=== PATIENT | male | born 1945 | race Caucasian/White ===

== ENCOUNTER 2021-04-17 18:09 | Inpatient (IN) ==
[2021-04-17] MEDS ORDERED: NS 0.9% 1000 ml BAG 1,000 ML IV ONE ×2 (18:34→18:55)
[2021-04-17 18:46] LABS: ABS Lymphocytes 0.2 10^3/ul (1.0-4.8); ABS Monocytes 1.4 10^3/ul (0-0.8); ABS Neutrophils 15.7 10^3/ul (1.5-7.7); Hematocrit 27 % (42-52); Lymphocyte % 1.1 %; Mean Corpuscular HGB Conc 34 g/dL (31-36); Mean Corpuscular Hemoglobin 31 pg (27-31); Mean Corpuscular Volume 93 fL (80-94); Platelet Count 296 10^3/uL (150-450); Red Blood Count 2.91 10^6 /uL (4.18-5.48); Red Cell Distribution Width 17 % (10-15); White Blood Count 17.4 10^3/uL (3.5-10.8)
[2021-04-17] MEDS ORDERED: Piperacillin/Tazobac ADVAN 3.375 GM in NS 0.9% 100 ml BAG 100 ML IVPB ONE (18:58)
[2021-04-17 19:10] LABS: ALT 7 U/L (7-52); AST 18 U/L (13-39); Albumin 3.1 g/dL (3.2-5.2); Albumin/Globulin Ratio 1.2 (1-3); Alkaline Phosphatase 74 U/L (35-149); Anion Gap 9 mmol/L (2-11); Blood Urea Nitrogen 27 mg/dL (6-24); CO2 Carbon Dioxide 21 mmol/L (22-32); Calcium 8.7 mg/dL (8.6-10.3); Chloride 104 mmol/L (101-111); Creatine Kinase 164 U/L (10-223); EGFR African American 65.3 (>60); Globulin 2.6 g/dL (2-4); Glucose 111 mg/dL (70-100); Potassium 3.1 mmol/L (3.5-5.0); Sodium 134 mmol/L (135-145); Total Protein 5.7 g/dL (6.4-8.9)
[2021-04-17 19:38] LABS: Troponin I 0.06 ng/mL (<0.03)
[2021-04-17] MEDS ORDERED: Albuterol HFA INHALER 8 gm MDI INH PRN (21:59)
[2021-04-17] MEDS ORDERED: Potassium Chlor 20 meq TAB.ER PO ONE (22:11)
[2021-04-17] MEDS ORDERED: Cefepime 1 GM IV - ED ONCE IV ONE (22:30)
[2021-04-17 23:23] LABS: Urine Appearance Turbid; Urine Bilirubin Negative (Negative); Urine Blood 3+ (Negative); Urine Color Amber; Urine Glucose Negative (Negative); Urine Ketones Negative (Negative); Urine Nitrite Negative (Negative); Urine Protein 3+(>=500 mg/dL) (Negative); Urine Specific Gravity 1.009 (1.002-1.030); Urine Urobilinogen Negative (Negative)
[2021-04-17 23:29] LABS: Urine Bacteria 1+ (Absent); Urine Red Blood Cell 3+(>10/hpf) (Absent); Urine Squamous Epithelial Cell Present (Absent); Urine White Blood Cell 3+(>20/hpf) (Absent)
[2021-04-18] MEDS: NS 0.9% 1000 ml BAG 1,000 ML IV SCH ×2 (01:32→15:36)
[2021-04-18 03:04] LABS: % Iron Saturation 8 % (15-55); Iron < 20 ug/dL (50-212); Total Iron Binding Capacity 245 mcg/dL (250-450); Transferrin 175 mg/dL (203-362); Unsaturated Iron Binding < 230 ug/dL
[2021-04-18 03:04] LABS: Troponin I 0.07 ng/mL (<0.03)
[2021-04-18 04:52] LABS: Ferritin 144.5 ng/mL (24-336)
[2021-04-18 04:59] LABS: Vitamin B12 96 pg/mL (180-914)
[2021-04-18 06:02] LABS: ABS Lymphocytes 0.4 10^3/ul (1.0-4.8); ABS Monocytes 1.5 10^3/ul (0-0.8); ABS Neutrophils 11.9 10^3/ul (1.5-7.7); Eosinophil % 0.1 %; Hematocrit 24 % (42-52); Hemoglobin 8.1 g/dL (14.0-18.0); Lymphocyte % 3.1 %; Mean Corpuscular HGB Conc 34 g/dL (31-36); Mean Corpuscular Hemoglobin 32 pg (27-31); Mean Corpuscular Volume 94 fL (80-94); Mean Platelet Volume 7.8 fL (7.4-10.4); Nucleated Red Blood Cells % 0.1; Platelet Count 271 10^3/uL (150-450); Red Blood Count 2.59 10^6 /uL (4.18-5.48); Red Cell Distribution Width 17 % (10-15); White Blood Count 13.8 10^3/uL (3.5-10.8)
[2021-04-18 06:18] LABS: Anion Gap 6 mmol/L (2-11); Blood Urea Nitrogen 25 mg/dL (6-24); CO2 Carbon Dioxide 20 mmol/L (22-32); Calcium 7.9 mg/dL (8.6-10.3); Chloride 110 mmol/L (101-111); EGFR African American 71.7 (>60); EGFR Non-African American 59.3 (>60); Glucose 99 mg/dL (70-100); Potassium 3.8 mmol/L (3.5-5.0); Sodium 136 mmol/L (135-145)
[2021-04-18 08:01] LABS: Troponin I 0.06 ng/mL (<0.03)
[2021-04-18] MEDS: Tiotropium Brom/Olodaterol MDI INH SCH (08:31)
[2021-04-18] MEDS: Cefepime 1 GM in Dextrose 1 GM/50 ML BAG IV SCH ×2 (10:25→22:13)
[2021-04-18] MEDS: Aspirin EC 81 mg TAB.EC (enteric coated) PO SCH (10:25)
[2021-04-18 14:03] LABS: C Reactive Protein 134.56 mg/L (<8.01)
[2021-04-18] MEDS ORDERED: COVID-19 VACCINE, AD26(JANSSEN)/PF 0.5 ML IM ONE (15:30)
[2021-04-18 20:10] LABS: Erythrocyte Sed Rate 20 mm/Hr (0-19)
[2021-04-19 00:41] LABS: Hematocrit 25 % (42-52); Hemoglobin 8.2 g/dL (14.0-18.0)
[2021-04-19] MEDS: NS 0.9% 1000 ml BAG 1,000 ML IV SCH (04:38)
[2021-04-19 07:01] LABS: ABS Basophils 0.1 10^3/ul (0-0.2); ABS Eosinophils 0.1 10^3/ul (0-0.6); ABS Lymphocytes 0.3 10^3/ul (1.0-4.8); ABS Monocytes 1.2 10^3/ul (0-0.8); ABS Neutrophils 11.6 10^3/ul (1.5-7.7); Eosinophil % 0.5 %; Hematocrit 25 % (42-52); Hemoglobin 8.3 g/dL (14.0-18.0); Lymphocyte % 2.5 %; Mean Corpuscular HGB Conc 33 g/dL (31-36); Mean Corpuscular Hemoglobin 31 pg (27-31); Mean Corpuscular Volume 93 fL (80-94); Mean Platelet Volume 8.3 fL (7.4-10.4); Platelet Count 270 10^3/uL (150-450); Red Blood Count 2.67 10^6 /uL (4.18-5.48); Red Cell Distribution Width 17 % (10-15); White Blood Count 13.3 10^3/uL (3.5-10.8)
[2021-04-19 07:20] LABS: EGFR African American 86.7 (>60); EGFR Non-African American 71.6 (>60); Magnesium 1.3 mg/dL (1.9-2.7); Potassium 3.5 mmol/L (3.5-5.0)
[2021-04-19] MEDS ORDERED: Magnesium Sulf 4 GM/100 ML IV 4,000 MG/100 ML BAG IVPB ONE (07:20)
[2021-04-19] MEDS: Tiotropium Brom/Olodaterol MDI INH SCH (07:48)
[2021-04-19] MEDS: Aspirin EC 81 mg TAB.EC (enteric coated) PO SCH (09:41)
[2021-04-19] MEDS: Cefepime 1 GM in Dextrose 1 GM/50 ML BAG IV SCH ×2 (12:24→23:24)
[2021-04-20] MEDS: Tiotropium Brom/Olodaterol MDI INH SCH (07:29)
[2021-04-20] MEDS: Aspirin EC 81 mg TAB.EC (enteric coated) PO SCH (08:59)
[2021-04-20 09:33] LABS: Hematocrit 26 % (42-52); Hemoglobin 8.8 g/dL (14.0-18.0); Mean Corpuscular HGB Conc 34 g/dL (31-36); Mean Corpuscular Hemoglobin 32 pg (27-31); Mean Corpuscular Volume 94 fL (80-94); Mean Platelet Volume 8.3 fL (7.4-10.4); Platelet Count 284 10^3/uL (150-450); Red Blood Count 2.79 10^6 /uL (4.18-5.48); Red Cell Distribution Width 17 % (10-15); White Blood Count 10.9 10^3/uL (3.5-10.8)
[2021-04-20 09:52] LABS: Calcium 8.6 mg/dL (8.6-10.3); EGFR African American 105.8 (>60); EGFR Non-African American 87.4 (>60); Potassium 3.3 mmol/L (3.5-5.0)
[2021-04-20] MEDS: Cefepime 1 GM in Dextrose 1 GM/50 ML BAG IV SCH ×2 (11:15→23:31)
[2021-04-20 15:43] LABS: Intrinsic Factor Blocking AB Negative (Negative)
[2021-04-20 16:00] LABS: Gastrin 192 pg/mL
[2021-04-20] MEDS: Polyethylene Glycol 3350 17 GM PACKET PO SCH (18:07)
[2021-04-20] MEDS ORDERED: Potassium Chlor 20 meq TAB.ER PO ONE (19:35)
[2021-04-21 06:59] LABS: Hematocrit 24 % (42-52); Hemoglobin 8.2 g/dL (14.0-18.0); Mean Corpuscular HGB Conc 34 g/dL (31-36); Mean Corpuscular Hemoglobin 32 pg (27-31); Mean Corpuscular Volume 92 fL (80-94); Mean Platelet Volume 8.4 fL (7.4-10.4); Platelet Count 274 10^3/uL (150-450); Red Blood Count 2.59 10^6 /uL (4.18-5.48); Red Cell Distribution Width 16 % (10-15); White Blood Count 9.3 10^3/uL (3.5-10.8)
[2021-04-21 07:14] LABS: Calcium 8.4 mg/dL (8.6-10.3); EGFR African American 105.8 (>60); EGFR Non-African American 87.4 (>60); Magnesium 1.7 mg/dL (1.9-2.7); Potassium 3.5 mmol/L (3.5-5.0)
[2021-04-21] MEDS: Tiotropium Brom/Olodaterol MDI INH SCH (07:58)
[2021-04-21] MEDS: Aspirin EC 81 mg TAB.EC (enteric coated) PO SCH (09:42)
[2021-04-21] MEDS: Polyethylene Glycol 3350 17 GM PACKET PO SCH (09:42)
[2021-04-21] MEDS: Cefepime 1 GM in Dextrose 1 GM/50 ML BAG IV SCH ×2 (11:21→22:40)
[2021-04-21] MEDS ORDERED: Furosemide 20 mg/2 ml IV VIAL IV ONE (18:36)
[2021-04-21] MEDS ORDERED: Magnesium Sulfate IV 3 GM in NS 0.9% 100 ml BAG 100 ML IVPB ONE (18:43)
[2021-04-22] MEDS: Tiotropium Brom/Olodaterol MDI INH SCH (07:09)
[2021-04-22] MEDS: Aspirin EC 81 mg TAB.EC (enteric coated) PO SCH (09:51)
[2021-04-22] MEDS: Polyethylene Glycol 3350 17 GM PACKET PO SCH (09:52)
[2021-04-22] MEDS ORDERED: Furosemide 40 mg/4 ml IV VIAL IV ONE (11:15)
[2021-04-22] MEDS: Cefepime 1 GM in Dextrose 1 GM/50 ML BAG IV SCH (11:45)
[2021-04-22 17:22] VITALS: BP 115/61
== END 2021-04-22 18:15 | disposition home or self-care (01) | DRG 871 ==
LOC: ED 18:09 → MED 18:09
PROVIDERS: ADMIT Hospitalist; ATTEND Internal Medicine

== ENCOUNTER 2021-09-25 08:31 | Observation (INO) ==
[2021-09-25 09:41] LABS: ABS Basophils 0.1 10^3/ul (0-0.2); ABS Eosinophils 0.4 10^3/ul (0-0.6); ABS Lymphocytes 0.4 10^3/ul (1.0-4.8); ABS Monocytes 1.5 10^3/ul (0-0.8); Eosinophil % 3.5 %; Hematocrit 28 % (42-52); Hemoglobin 9.3 g/dL (14.0-18.0); Lymphocyte % 4.1 %; Mean Corpuscular HGB Conc 34 g/dL (31-36); Mean Corpuscular Hemoglobin 30 pg (27-31); Mean Corpuscular Volume 90 fL (80-94); Mean Platelet Volume 8.7 fL (7.4-10.4); Platelet Count 393 10^3/uL (150-450); Red Blood Count 3.09 10^6 /uL (4.18-5.48); Red Cell Distribution Width 14 % (10-15); White Blood Count 10.4 10^3/uL (3.5-10.8)
[2021-09-25 09:58] LABS: Albumin 3.3 g/dL (3.2-5.2); Albumin/Globulin Ratio 1.1 (1-3); Calcium 9.2 mg/dL (8.6-10.3); Globulin 3.1 g/dL (2-4); Total Bilirubin 0.9 mg/dL (0.2-1.0); Total Protein 6.4 g/dL (6.4-8.9)
[2021-09-25 10:00] LABS: Troponin I 0.02 ng/mL (<0.03)
[2021-09-25 10:44] LABS: Magnesium 1.5 mg/dL (1.9-2.7); Potassium 3.7 mmol/L (3.5-5.0)
[2021-09-25] MEDS ORDERED: Magnesium Sulfate 2 gm BAG 2 GM/50 ML BAG IVPB ONE (10:55)
[2021-09-25] MEDS ORDERED: methylPREDNISolone 125 mg 2 ML VIAL IV ONE (10:55)
[2021-09-25 11:02] LABS: Urine Appearance Turbid; Urine Bilirubin Negative (Negative); Urine Blood 1+ (Negative); Urine Color Amber; Urine Glucose Negative (Negative); Urine Ketones Trace (Negative); Urine Nitrite Positive (Negative); Urine Protein 2+(100 mg/dL) (Negative); Urine Specific Gravity 1.011 (1.002-1.030); Urine Urobilinogen Negative (Negative)
[2021-09-25 11:05] LABS: Urine Amorphous Crystals Present (Absent); Urine Bacteria 2+ (Absent); Urine Red Blood Cell 3+(>10/hpf) (Absent); Urine Squamous Epithelial Cell Present (Absent); Urine White Blood Cell 3+(>20/hpf) (Absent)
[2021-09-25] MEDS ORDERED: cefTRIAXone 1 gm/50 mL NS BAG 1 GM/50 ML BAG IV ONE (11:08)
[2021-09-25 15:18] LABS: Rapid COVID-19 Molecular Undetected (Undetected)
[2021-09-25] MEDS ORDERED: Magnesium Sulfate IV 3 GM in NS 0.9% 100 ml BAG 100 ML IVPB ONE (16:46)
[2021-09-25] MEDS ORDERED: Albuterol/Ipratropium NEB.SOL (2.5/0.5 MG) 3 ML NEB.SOLN INH ONE (16:46)
[2021-09-25] MEDS ORDERED: NS 0.9% 100 ml BAG 100 ML ONE (17:14)
[2021-09-25] MEDS ORDERED: Lactated Ringers 500 ml BAG 500 ML IV ONE (20:28)
[2021-09-25] MEDS: methylPREDNISolone SOD 40 mg/ml 1 ml VIAL IV SCH (21:06)
[2021-09-25] MEDS ORDERED: Albuterol HFA INHALER 8 gm MDI INH PRN (21:59)
[2021-09-25] MEDS ORDERED: Lactated Ringers 1000 ml BAG 1,000 ML IV SCH (22:00)
[2021-09-25] MEDS: Mometasone/Formoter 100/5 MDI INH SCH (23:07)
[2021-09-26] MEDS ORDERED: Lactated Ringers 500 ml BAG 500 ML IV ONE (01:05)
[2021-09-26 01:59] LABS: Magnesium 2.7 mg/dL (1.9-2.7)
[2021-09-26] MEDS ORDERED: Potassium Chlor 20 meq TAB.ER PO ONE (02:55)
[2021-09-26] MEDS: methylPREDNISolone SOD 40 mg/ml 1 ml VIAL IV SCH ×3 (04:10→20:11)
[2021-09-26] MEDS: KCL 20 MEQ/100 ML IVPREMIX 20 MEQ/100 ML BAG IV SCH ×2 (04:11→06:19)
[2021-09-26 04:33] LABS: ABS Lymphocytes 0.2 10^3/ul (1.0-4.8); ABS Monocytes 0.1 10^3/ul (0-0.8); Hematocrit 26 % (42-52); Hemoglobin 8.9 g/dL (14.0-18.0); Lymphocyte % 3.9 %; Mean Corpuscular HGB Conc 34 g/dL (31-36); Mean Corpuscular Hemoglobin 30 pg (27-31); Mean Corpuscular Volume 89 fL (80-94); Mean Platelet Volume 8.3 fL (7.4-10.4); Platelet Count 375 10^3/uL (150-450); Red Blood Count 2.93 10^6 /uL (4.18-5.48); Red Cell Distribution Width 14 % (10-15); White Blood Count 6.4 10^3/uL (3.5-10.8)
[2021-09-26 04:49] LABS: Calcium 8.8 mg/dL (8.6-10.3); Magnesium 2.5 mg/dL (1.9-2.7); Phosphorus 2.9 mg/dL (2.5-5.0); Potassium 3.2 mmol/L (3.5-5.0)
[2021-09-26] MEDS: Aspirin EC 81 mg TAB.EC (enteric coated) PO SCH (08:01)
[2021-09-26] MEDS: Cholecalciferol (VIT D3) 400 units TAB PO SCH (08:01)
[2021-09-26] MEDS: ASCORBIC ACID PO SCH (08:02)
[2021-09-26] MEDS: FERROUS SULFATE PO SCH (08:02)
[2021-09-26] MEDS: ABIRATERONE 250 MG PO SCH (08:02)
[2021-09-26] MEDS: FOLIC ACID PO SCH (08:02)
[2021-09-26] MEDS: SPIRIVA Respimat (tiotropium) 2.5 mcg/inh Inhaler INH SCH (10:07)
[2021-09-26] MEDS: Mometasone/Formoter 100/5 MDI INH SCH ×2 (10:07→20:10)
[2021-09-26 10:21] LABS: C Reactive Protein 79.58 mg/L (<8.01)
[2021-09-26] MEDS: cefTRIAXone 1 gm/50 mL NS BAG 1 GM/50 ML BAG IVPB SCH (12:31)
[2021-09-27 05:12] LABS: Anion Gap 7 mmol/L (2-11); Blood Urea Nitrogen 23 mg/dL (6-24); CO2 Carbon Dioxide 22 mmol/L (22-32); Chloride 109 mmol/L (101-111); Glucose 149 mg/dL (70-100); Potassium 4.4 mmol/L (3.5-5.0); Sodium 138 mmol/L (135-145); eGFR CKD-EPI 78.9 (>60)
[2021-09-27 05:32] LABS: % Iron Saturation 42 % (15-55); Iron 84 ug/dL (50-212); LDH 128 U/L (140-271); Total Iron Binding Capacity 200 mcg/dL (250-450); Transferrin 143 mg/dL (203-362); Unsaturated Iron Binding < 185 ug/dL
[2021-09-27 05:33] LABS: ABS Lymphocytes 0.2 10^3/ul (1.0-4.8); ABS Monocytes 0.5 10^3/ul (0-0.8); ABS Neutrophils 10.6 10^3/ul (1.5-7.7); Eosinophil % 0.1 %; Hematocrit 25 % (42-52); Hemoglobin 7.9 g/dL (14.0-18.0); Lymphocyte % 2.1 %; Mean Corpuscular HGB Conc 31 g/dL (31-36); Mean Corpuscular Hemoglobin 30 pg (27-31); Mean Corpuscular Volume 96 fL (80-94); Mean Platelet Volume 8.9 fL (7.4-10.4); Platelet Count 385 10^3/uL (150-450); Red Blood Count 2.64 10^6 /uL (4.18-5.48); Red Cell Distribution Width 15 % (10-15); White Blood Count 11.3 10^3/uL (3.5-10.8)
[2021-09-27 05:52] LABS: Ferritin 208.5 ng/mL (24-336)
[2021-09-27 05:57] LABS: Vitamin B12 983 pg/mL (180-914)
[2021-09-27] MEDS: Aspirin EC 81 mg TAB.EC (enteric coated) PO SCH (07:48)
[2021-09-27] MEDS: Cholecalciferol (VIT D3) 400 units TAB PO SCH (07:49)
[2021-09-27] MEDS: ASCORBIC ACID PO SCH (07:50)
[2021-09-27] MEDS: ABIRATERONE 250 MG PO SCH (07:50)
[2021-09-27] MEDS: FOLIC ACID PO SCH (07:50)
[2021-09-27] MEDS: FERROUS SULFATE PO SCH (07:50)
[2021-09-27] MEDS ORDERED: methylPREDNISolone SOD 40 mg/ml 1 ml VIAL IV SCH (09:00)
[2021-09-27] MEDS: SPIRIVA Respimat (tiotropium) 2.5 mcg/inh Inhaler INH SCH (09:29)
[2021-09-27] MEDS: Mometasone/Formoter 100/5 MDI INH SCH (09:30)
[2021-09-27] MEDS: cefTRIAXone 1 gm/50 mL NS BAG 1 GM/50 ML BAG IVPB SCH (12:34)
[2021-09-27 14:49] VITALS: BP 110/52
== END 2021-09-27 16:25 | disposition home or self-care (01) ==
LOC: EDHOLD 08:31 → ED 08:31 → SUATTDRO 16:47 → MED 18:28
PROVIDERS: ADMIT Internal Medicine; ATTEND Internal Medicine